=== PATIENT | female | born 1990 | race American Indian/Alaskan Native ===

== ENCOUNTER 2019-05-24 14:19 | Emergency (ER) | payer MEDICAID ==
[2019-05-24] MEDS ORDERED: IPRATROPIUM 0.02% NEBU 2.5 ML IH ONE (15:35)
[2019-05-24] MEDS ORDERED: predniSONE 20 MG TAB PO ONE (15:35)
[2019-05-24] MEDS ORDERED: ALBUTEROL 2.5 MG/3 ML NEBU IH ONE (15:35)
--- NOTE | 2019-05-24 16:34 | XRay Report ---
CHEST 2 VIEWS INDICATION: cough with SOB. COMPARISON: None FINDINGS: Support devices: None. Heart: Within normal limits. Lungs: No acute air space or interstitial disease. Pleura: No significant pleural effusion. No pneumothorax. Additional findings: None. IMPRESSION: 1. No acute findings. Signer Name: Ben Deleon MD Signed: 05/24/2019 4:29 PM Workstation Name: [email or web address] ?
[2019-05-24] MEDS ORDERED: ACETAMINOPHEN 325 MG TAB PO ONE (16:42)
--- NOTE | 2019-05-24 17:46 | Emergency Department Report ---
- General Chief Complaint: Upper Respiratory Infection Stated Complaint: PNEUMONIA SYM Time Seen by Provider: 05/24/19 15:24 Source: patient Mode of arrival: Ambulatory Limitations: No Limitations - History of Present Illness Initial Comments: Patient is a 28-year-old F [place] female who is presenting with wheezing and shortness of breath for the last 2 days. Patient does not have a history of asthma. Patient states she has had a cough congestion with headaches and chills for the past several days. [facility] and [facility] ruled out for having influenza or strep pharyngitis but was sent to the emergency department to rule out pneumonia. Patient has had a cough that is minimally productive. Patient states symptoms originally started approximately 15 days ago she began coughing took some [id number] medications and felt as though she was getting better but over the last 4 to 5 days symptoms have returned and worsened. - Related Data Previous Rx's Medication Instructions Recorded Last Taken Type Acetaminophen/Codeine [Tylenol #3] 1 tab PO Q6H PRN #15 tab 07/20/14 Unknown Rx Nitrofurantoin [place]/M-Cryst 100 mg PO Q12HR #20 capsule 07/20/14 Unknown Rx [Macrobid] Ondansetron [Zofran Odt] 4 mg PO Q8HR PRN #8 tab.rapdis 07/20/14 Unknown Rx Nitrofurantoin [place]/M-Cryst 100 mg PO Q12HR #14 capsule 08/17/14 Unknown Rx [Macrobid] diphenhydrAMINE [Benadryl] 25 mg PO Q6HR PRN #30 capsule 08/17/14 Unknown Rx predniSONE [Deltasone] 20 mg PO QDAY 4 Days tab 08/17/14 Unknown Rx Nitrofurantoin [place]/M-Cryst 100 mg PO Q12HR #14 capsule 08/28/14 Unknown Rx [Macrobid] Acetaminophen [Acetaminophen TAB] 650 mg PO Q6HR PRN #30 tablet 09/10/14 Unknown Rx Acetaminophen [Acetaminophen ER 650 mg PO Q8HR PRN #90 tablet.er 12/04/14 Unknown Rx TAB] Pramoxine 1% [Proctofoam] 1 applicatio TP 5XD PRN #1 foam 03/21/16 Unknown Rx Albuterol INH(or & Nicu Only) 2 puff IH QID PRN #1 inhalation 05/24/19 Unknown Rx [ProAir HFA Inhaler] Azithromycin [Zithromax Z-DOLLY] 250 mg PO DAILY #6 tablet 05/24/19 Unknown Rx Benzonatate [Tessalon Perles] 100 mg PO Q8HR #10 capsule 05/24/19 Unknown Rx predniSONE [Deltasone] 20 mg PO QDAY #5 tab 05/24/19 Unknown Rx Allergies Allergy/AdvReac Type Severity Reaction Status Date / Time cephalexin AdvReac Unknown Verified 08/28/14 00:11 ED Review of Systems ROS: Stated complaint: PNEUMONIA SYM Other details as noted in HPI Comment: All other systems reviewed and negative ED Past Medical Hx - Past Medical History Previous Medical History?: Yes Hx Hypertension: No Hx CVA: Yes Hx Diabetes: No Hx Deep Vein Thrombosis: No Hx Renal Disease: No Hx Sickle Cell Disease: No Hx Seizures: No Hx Asthma: No Hx HIV: No Additional medical history: anemia, hemorrhoids - Social History Smoking Status: Never Smoker Substance Use Type: None - Medications Home Medications: Home Medications Medication Instructions Recorded Confirmed Last Taken Type Acetaminophen/Codeine [Tylenol #3] 1 tab PO Q6H PRN #15 tab 07/20/14 08/17/14 Unknown Rx Nitrofurantoin [place]/M-Cryst 100 mg PO Q12HR #20 capsule 07/20/14 08/17/14 Unknown Rx [Macrobid] Ondansetron [Zofran Odt] 4 mg PO Q8HR PRN #8 tab.rapdis 07/20/14 08/17/14 Unknown Rx Nitrofurantoin [place]/M-Cryst 100 mg PO Q12HR #14 capsule 08/17/14 Unknown Rx [Macrobid] diphenhydrAMINE [Benadryl] 25 mg PO Q6HR PRN #30 capsule 08/17/14 Unknown Rx predniSONE [Deltasone] 20 mg PO QDAY 4 Days tab 08/17/14 Unknown Rx Nitrofurantoin [place]/M-Cryst 100 mg PO Q12HR #14 capsule 08/28/14 Unknown Rx [Macrobid] Acetaminophen [Acetaminophen TAB] 650 mg PO Q6HR PRN #30 tablet 09/10/14 Unknown Rx Acetaminophen [Acetaminophen ER 650 mg PO Q8HR PRN #90 tablet.er 12/04/14 Unknown Rx TAB] Pramoxine 1% [Proctofoam] 1 applicatio TP 5XD PRN #1 foam 03/21/16 Unknown Rx Albuterol INH(or & Nicu Only) 2 puff IH QID PRN #1 inhalation 05/24/19 Unknown Rx [ProAir HFA Inhaler] Azithromycin [Zithromax Z-DOLLY] 250 mg PO DAILY #6 tablet 05/24/19 Unknown Rx Benzonatate [Tessalon Perles] 100 mg PO Q8HR #10 capsule 05/24/19 Unknown Rx predniSONE [Deltasone] 20 mg PO QDAY #5 tab 05/24/19 Unknown Rx ED Physical Exam - General Limitations: No Limitations General appearance: alert, in no apparent distress - Head Head exam: Present: atraumatic, normocephalic - Eye Eye exam: Present: normal appearance - ENT ENT exam: Present: mucous membranes moist - Neck Neck exam: Present: normal inspection - Respiratory Respiratory exam: Present: respiratory distress, wheezes, decreased breath sounds. Absent: normal lung sounds bilaterally - Cardiovascular Cardiovascular Exam: Present: regular rate, normal rhythm, normal heart sounds. Absent: systolic murmur, diastolic murmur, rubs, gallop - GI/Abdominal GI/Abdominal exam: Present: soft, normal bowel sounds. Absent: distended, tenderness, guarding, rebound - Extremities Exam Extremities exam: Present: normal inspection - Back Exam Back exam: Present: normal inspection - Neurological Exam Neurological exam: Present: alert, oriented X3 - Psychiatric Psychiatric exam: Present: normal affect, normal mood - Skin Skin exam: Present: warm, dry, intact, normal color. Absent: rash ED Course Vital Signs 05/24/19 05/24/19 05/24/19 14:40 15:26 15:38 Temperature 122.0 F H 98.8 F Pulse Rate 89 82 Pulse Rate [ Anterior Bilateral Throughout] Respiratory 20 16 Rate Respiratory Rate [Anterior Bilateral Throughout] Blood Pressure 124/78 Blood Pressure 121/84 [Left] O2 Sat by Pulse 98 96 Oximetry 05/24/19 16:08 Temperature Pulse Rate Pulse Rate [ 85 Anterior Bilateral Throughout] Respiratory Rate Respiratory 19 Rate [Anterior Bilateral Throughout] Blood Pressure Blood Pressure [Left] O2 Sat by Pulse Oximetry ED Medical Decision Making - Radiology Data CHEST 2 VIEWS INDICATION: cough with SOB. COMPARISON: None FINDINGS: Support devices: None. Heart: Within normal limits. Lungs: No acute air space or interstitial disease. Pleura: No significant pleural effusion. No pneumothorax. Additional findings: None. IMPRESSION: 1. No acute findings. Signer Name: Ben Deleon MD Signed: 05/24/2019 4:29 PM Workstation Name: [id number] - Medical Decision Making Patient is a 28-year-old F [place] female presenting with cough and congestion. Patient also has developed some wheezing as well. Patient was given neb treatment and her breathing has improved. Wheezing is diminished. Chest x-ray is negative for pneumonia. Patient likely with a acute bronchitis with bronchospasm. Patient will be started on medication for symptomatic relief be discharged home. Critical care attestation.: If time is entered above; I have spent that time in minutes in the direct care of this critically ill patient, excluding procedure time. ED Disposition Clinical Impression: Acute bronchitis with bronchospasm Disposition: DC-01 TO HOME OR SELFCARE Is pt being admited?: No Does the pt Need Aspirin: No Condition: Stable Instructions: Acute Bronchitis (ED) Referrals: MANDY PALMER MD [Primary Care Provider] - 3-5 Days Time of Disposition: 17:46
[2019-05-24 17:51] VITALS: BP 128/64
== END 2019-05-24 18:45 | disposition home or self-care (01) ==
LOC: ED 14:19
DX: J20.9 Acute bronchitis, unspecified (principal); J45.909 Unspecified asthma, uncomplicated; D64.9 Anemia, unspecified; Z88.1 Allergy status to other antibiotic agents; Z86.73 Personal history of transient ischemic attack (TIA), and cerebral infarction without residual deficits; Z79.899 Other long term (current) drug therapy
CPT/HCPCS: 71046; 94640; 99283; J7512; 94644